=== PATIENT | female | born 2000 | race Caucasian/White ===

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

== ENCOUNTER 2021-01-09 22:57 | Observation (INO) | payer MEDICAID ==
[2021-01-09] MEDS ORDERED: Sodium Chloride 0.9% 10 ML Syringe FLUSH PRN (23:10)
[2021-01-09] MEDS ORDERED: Sodium Chloride 0.9% 1,000 ML IV SCH (23:15)
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
[2021-01-10 00:01] LABS: CHLORIDE,CL 106 mmol/L (98-107); SODIUM,NA 141 mmol/L (136-145)
[2021-01-10 00:06] LABS: ACETAMINOPHEN 0 ug/ml (10-30); ANION GAP 17.6 mmol/L (5-15)
[2021-01-10] MEDS ORDERED: Pantoprazole 40 MG Vial IVPUSH ONE (00:13)
[2021-01-10 00:28] LABS: BARBITURATE SCREEN,URINE NEGATIVE (NEGATIVE); BENZODIAZEPINES SCREEN,URINE NEGATIVE (NEGATIVE); BUPRENORPHINE SCREEN,URINE NEGATIVE (NEGATIVE); METHAMPHETAMINE SCREEN, URINE NEGATIVE (NEGATIVE); THC SCREEN,URINE 50 NG/ML NEGATIVE (NEGATIVE)
[2021-01-10 07:55] LABS: ACETAMINOPHEN 0 ug/ml (10-30); ANION GAP 14.7 mmol/L (5-15); CHLORIDE,CL 111 mmol/L (98-107); SODIUM,NA 144 mmol/L (136-145)
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
== END 2021-01-10 10:45 | disposition home or self-care (01) ==
LOC: VM.ED 22:57 → VM.MS 01-10 00:50 → VM.ED 01-10 00:54
PROVIDERS: ADMIT Physician Assistant; ATTEND Physician Assistant
DX: T39.312A Poisoning by propionic acid derivatives, intentional self-harm, initial encounter (principal); Z88.8 Allergy status to other drugs, medicaments and biological substances; Z88.0 Allergy status to penicillin; Z91.030 Bee allergy status
CPT/HCPCS: 36415; 80053; 80143; 80179; 80305-QW; 80307; 81001; 81025; 83735; 84100; 84443; 84484; 85025; 85610; 85730; 87086; 93005; 93010; 96374; 99217; 99220; 99285-25; C9113; G0378; J7030; U0002